=== PATIENT | male | born 1990 | race Caucasian/White ===

== ENCOUNTER 2022-11-06 18:35 | Inpatient (IN) | payer OTHER, SELFPAY ==
--- NOTE | ~2022-11-06 | CT_ITS ---
EXAMINATION: CT ABDOMEN AND PELVIS WITH CONTRAST CLINICAL INFORMATION: Severe abdominal pain. COMPARISON: Abdominal ultrasound earlier today. TECHNIQUE: Multidetector volumetric images were obtained from the superior aspect of the liver through the pubic symphysis following administration 85 mL of Omnipaque 350 intravenous contrast. Sagittal and coronal reformatted images were obtained on the technologist's workstation. Oral contrast: No. This CT examination was performed using dose optimization techniques as appropriate, variously including the following: *Automated exposure control. *Adjustment of mA and/or kV according to patient size (this includes techniques or standardized protocols for targeted exams where dose is matched to indication/reason for exam; i.e. extremities or head). *Use of iterative reconstruction technique. DLP: 321 mGy-cm. FINDINGS: LUNG BASES: No focal consolidation or pleural effusion. LIVER, GALLBLADDER, AND BILIARY TREE: The liver is enlarged measuring 18.5 cm craniocaudally, but is otherwise normal in shape and attenuation. No discrete focal liver mass is noted. There is periportal edema as well as intra and extrahepatic biliary ductal dilatation. The CBD measures up to 0.9 cm in diameter. There is some equivocal hyperdense material in the lumen of the CBD near the periampullary region, best visualized on coronal image 31, series 6. Diffuse gallbladder wall edema. No calcified cholelithiasis. No significant perivesical fat stranding/free fluid. PANCREAS: Unremarkable. SPLEEN: Unremarkable. ADRENAL GLANDS: Unremarkable. KIDNEYS AND URETERS: The kidneys are normal in size, shape, and attenuation. No hydronephrosis, hydroureter, or calculi seen. No perinephric stranding. BLADDER: Unremarkable. 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 There is intussusception of the small bowel into this region of aneurysmal dilatation. Intussusception measures approximately 5.5 cm in length. Multiple slightly prominent fluid filled loops of small bowel in the lower abdomen. Normal appendix. No pericolonic fat stranding/free fluid. ABDOMINAL WALL: No significant hernia is appreciated. LYMPH NODES: No lymphadenopathy. VASCULAR: Normal caliber abdominal aorta. PELVIC VISCERA: Unremarkable. OSSEOUS STRUCTURES: No acute or aggressive-appearing osseous findings. CT/CT abdomen pelvis w IV con IMPRESSION: 1. Approximately 5.5 cm segment of small bowel intussusception in the left upper quadrant adjacent to a surgical anastomosis with upstream aneurysmal dilatation of the bowel. 2. Slightly prominent fluid-filled loops of small bowel in the lower abdomen, nonspecific could be seen with gastroenteritis. 3. Biliary ductal dilatation with an equivocal hyperdense filling defect in the periampullary CBD, recommend further evaluation with MRI/MRCP. 4. Hepatomegaly with periportal edema. 5. Diffuse gallbladder wall edema which is nonspecific in the absence of cholelithiasis or significant pericholecystic fat stranding. Recommend clinical correlation. This critical result was discussed with WYATT Rowe at 11/06/2022 10:20 PM and it was ascertained that the content and urgency of the report was understood at the time of direct communication.
--- NOTE | ~2022-11-06 | US_ITS ---
EXAMINATION: US ABDOMEN LIMITED CLINICAL INFORMATION: Right upper quadrant pain; question cholecystitis. COMPARISON: None available. TECHNIQUE: Real-time imaging of the extrahepatic biliary tree. FINDINGS: GALLBLADDER: There is a sonographic Morales's sign. The gallbladder is physiologically distended, however, without evidence of stones, sludge, polyps, wall thickening or pericholecystic fluid. COMMON BILE DUCT: Normal in caliber measuring 0.4 cm in diameter. FREE FLUID: None demonstrated. US/US abdomen limited IMPRESSION: Some tenderness is seen upon insonation of the right upper quadrant. There is, however, no gallbladder wall thickening or pericholecystic fluid to suggest acute cholecystitis. No cholelithiasis or choledocholithiasis is seen.
--- NOTE | ~2022-11-06 | MR_ITS ---
EXAMINATION: MR ABDOMEN WITHOUT CONTRAST CLINICAL INFORMATION: Dilated CBD. COMPARISON: CT abdomen pelvis 11/06/2022 TECHNIQUE: MR abdomen is performed without gadolinium contrast. Heavily T2 weighted MRCP sequences were obtained. FINDINGS: Technically limited exam, the upper portion of the liver and spleen was excluded from the [id number] on axial sequences. LUNG BASES: Unremarkable. ABDOMINAL AND PELVIC WALL: Unremarkable. LIVER AND BILIARY TREE: Common bile duct measures 6 mm which is within upper limits of normal. No intra or extrahepatic biliary duct dilatation. No intraluminal filling defect suggest choledocholithiasis. GALLBLADDER: Unremarkable. PANCREAS: Unremarkable. SPLEEN: Unremarkable. ADRENAL GLANDS: Unremarkable. KIDNEYS AND URETERS: Unremarkable. GASTROINTESTINAL TRACT: Redemonstration of a small bowel intussusception in the left upper quadrant with upstream mild dilatation of small bowel to 3.3 cm similar to prior, suboptimally evaluated as only partially imaged on the axial sequences and a lead point as the etiology of the intussusception would be difficult to exclude. VASCULAR: Unremarkable. LYMPH NODES/PERITONEUM: No lymphadenopathy. FREE FLUID: None. BLADDER: Unremarkable. PELVIC VISCERA: Unremarkable. OSSEOUS STRUCTURES: Unremarkable. MR/MR MRCP IMPRESSION: 1. Redemonstration of a small bowel intussusception in the left upper quadrant with upstream mild dilatation of small bowel to 3.3 cm similar to prior, suboptimally evaluated as only partially imaged on the axial sequences and a lead point as the etiology of the intussusception would be difficult to exclude. Recommend continued clinical and/or imaging surveillance. 2. Common bile duct measures 6 mm which is within upper limits of normal. No intra or extrahepatic biliary duct dilatation. No intraluminal filling defect suggest choledocholithiasis.
[2022-11-06 18:46] VITALS: BP 135/85; PULSE 61; RESP 20; TEMP 36.7; O2SAT 99; BMI 21.0
--- NOTE | 2022-11-06 18:48 | ED.GENADULT ---
HPI - General Adult General Chief complaint: Abdominal Pain Stated complaint: severe abd pain Time Seen by Provider: 11/06/22 19:08 Source: patient Mode of arrival: ambulatory Limitations: no limitations History of Present Illness HPI narrative: Patient is a 32 year old assigned male at with a history of ETOH abuse and small bowel resection presenting to the emergency department today with right upper quadrant abdominal pain. Patient states that he began having right upper quadrant abdominal pain earlier this afternoon. Patient states that his last drink was yesterday but he usually drinks 9-10 drinks per day. Patient denies any dizziness, lightheadedness, vomiting, fever, chills, blurry vision, double vision, loss of vision, chest pain, difficulty breathing, shortness of breath, back pain, night sweats, pain with urination, increased urinary frequency, increased urinary urgency, blood in his urine or stool, syncope or a near syncopal episode, recent trauma or falls, bowel incontinence, bladder incontinence, bowel retention, bladder retention, or any other complaints at this time. Onset (ago): hour(s) Location: abdomen and right Radiation: non-radiation Severity: moderate Severity scale (1-10): 5 Pain Consistency: constant Relieving factors: none Exacerbating factors: none Associated symptoms: denies other symptoms Treatments prior to arrival: none Related Data Home Medications Medication Instructions Recorded Confirmed No Known Home Meds 11/07/22 11/07/22 Allergies Allergy/AdvReac Type Severity Reaction Status Date / Time bee pollen [bee stings] Allergy Anaphylaxis Verified 11/06/22 18:46 Penicillins Allergy Rash Verified 11/06/22 18:46 Review of Systems Constitutional: Constitutional: Reports no additional constitutional complaints, Denies chills, Denies fever(s) and Denies night sweats Eyes: Eyes: Reports no additional eye complaints, Denies blurry vision, Denies change in vision, Denies diplopia, Denies eye discharge, Denies loss of vision and Denies eye pain ENT: Denies dizziness Cardiovascular: Cardiovascular: Reports no additional cardiovascular complaints, Denies chest pain, Denies lightheadedness, Denies Loss of Consciousness and Denies dyspnea Respiratory: Respiratory: Reports no additional respiratory complaints and Denies dyspnea Gastrointestinal: Gastrointestinal: Reports no additional gastrointestinal complaints, Reports abdominal pain, Denies melena, Denies hematochezia, Denies change in bowel habits, Denies change in stool character and Reports nausea Genitourinary: Genitourinary: Reports no additional male genitourinary complaints, Denies hematuria, Denies oliguria, Denies difficulty urinating, Denies dysuria, Denies urinary frequency, Denies urinary hesitancy, Denies urinary incontinence and Denies urinary urgency Musculoskeletal: Musculoskeletal: Reports no additional musculoskeletal complaints, Denies numbness and Denies tingling Neurologic: Denies dizziness, Denies loss of vision, Denies numbness and Denies tingling Psychiatric: Psychiatric: Reports no additional psychiatric complaints Endocrine: Endocrine: Reports no additional endocrine complaints Hematologic/Lymphatic: Hematologic/Lymphatic: Reports no additional hematologic/lymphatic complaints Allergic/Immunologic: Allergic/Immunologic: Reports no additional allergic/immunologic complaints [facility] Past Medical History Attestation statement: The following information was validated with the patient. Source: old records reviewed and nursing notes reviewed Medical History Abdominal pain ETOH abuse Surgical History History of resection of small bowel Social History Social History Household Members: None Housing: Apartment Do you presently have visiting nurse or other home services: No Alcohol intake: current Alcohol intake frequency: 3 or more drinks per day Alcohol type: beer Patient Tobacco Use Status: Current someday Tobacco user Tobacco use type: Cigarette Smoked in Last 30 Days: Yes e-Cigarette/Vaping Use: Never Used Patient Interested in Nicotine Replacement: No Use of substances other than those prescribed or required for medical reasons: Yes Substance Use Type: Marijuana Substance Use Frequency: Daily Last Used Substance: Just Prior to Admission Currently Displaying Signs/Symptoms of Drug Intoxication Withdrawal: No Any prior treatment program specific to substance use: No Have you been hit, kicked, punched, or otherwise hurt by someone within the past year? If so, by whom?: No Do you feel safe in your current relationship?: No Current Relationship Is there a partner from a previous relationship who is making you feel unsafe now?: No Are you made to feel afraid or neglected: No Advance Directives: No Advance Directives Information Provided: No Do you have thoughts of harming others: None Do you have a plan to hurt others: No Plan Recently lost weight without trying: Yes How much weight loss: 2-13 pounds Eating poorly because of decreased appetite: No Nutrition screen score: 3 Nutrition Risks: No Nutritional Risk Poor oral hygiene: No Physical Exam ED Vital Signs: Vital Signs - 24 hr 11/06/22 18:46 11/06/22 21:26 Temperature 98.0 F 98.3 F Pulse Rate 61 55 Respiratory Rate 20 16 Blood Pressure 135/85 103/61 Pulse Oximetry 99 97 Oxygen Delivery Method Room Air Room Air BMI result Body Mass Index 21.0 Const General: cooperative, no acute distress, alert and awake Nutritional Appearance: well nourished Orientation/consciousness: patient oriented x3 Limitations: no limitations HENMT Head: Yes normal to inspection and Yes atraumatic Ears: hearing grossly normal bilaterally and external ears normal General nose exam: Normal external nose present, no nasal discharge noted and no epistaxis Face and sinus: Yes normal facial exam, No abrasion and No laceration Mouth: Normal oral and palatal mucosa present, no drooling and no muffled voice Eyes General: appearance normal, both eyes and all related structures Periorbital: periorbital findings normal Eyelids: Yes eyelids normal Conjunctivae: conjunctivae normal Pupils: Equal, round and reactive pupils present EOM: EOMs intact bilaterally Neck Neck: Yes normal visual inspection, Yes full ROM and Yes no lymphadenopathy Chest Chest palpation & inspection: normal inspection of the chest Resp Effort & Inspection: normal respiratory effort and able to speak in complete sentences Auscultation: clear to auscultation bilaterally Cardio Rate: regular rate Rhythm: regular rhythm GI Inspection: Yes normal to inspection Palpation (GI): Soft to palpation, not firm, Tenderness to palpation present (GI) in the RUQ and no guarding Neuro General: patient oriented x3 and moves all extremities Cranial nerves: Yes Equal, round and reactive pupils present Cognition (Neuro): normal cognition Motor exam (neuro): 5/5 motor strength present throughout Sensory Exam: Normal double simultaneous stimulation for sensation Coordination: [id number] test normal Extrem General: Yes normal to inspection, Yes full ROM and Yes capillary refill normal Psych Appearance: grossly normal Mental Status: mental status grossly normal Affect: normal affect Attitude: cooperative Thought process: Normal thought process present Thought content: Normal thought content present Insight: Good insight present (Psych) Course Course Course Narrative: RME: 32 yold female presents to the ED for severe RuQ abdominal pain with nausea. positive Morales sign and guarding. CHarge nurse yazmin made aware to bring patinet in for surigal abdomen Medications Administered Generic Name Dose Route Start Last Admin Trade Name Freq PRN Reason Stop Dose Admin Sodium Chloride 1,000 mls @ 100 mls/hr 11/06/22 22:45 11/07/22 09:16 Ns IVCONT 100 mls/hr .Q10H TYESHA Administration Morphine Sulfate 3 mg 11/06/22 22:35 11/07/22 04:30 Morphine Sulfate 2 Mg/Ml Cartridge IVPUSH 3 mg Q4H PRN Administration pain, severe Protocol Omeprazole 20 mg 11/07/22 09:00 11/07/22 09:16 Omeprazole 20 Mg Capsule.Dr PO 20 mg BID TYESHA Administration Sodium Chloride 3 ml 11/07/22 00:00 11/07/22 07:36 0.9 % Sodium Chloride Flush 3 Ml Syringe IVFLUSH Not Given QSHIFT TYESHA Discontinued Medications Generic Name Dose Route Start Last Admin Trade Name Freq PRN Reason Stop Dose Admin Sodium Chloride 1,000 mls @ 999 mls/hr 11/06/22 19:04 11/06/22 23:00 Ns IV 11/06/22 20:04 Infused .Q1H1M STA Infusion Iohexol 100 ml 11/06/22 20:23 11/06/22 20:24 Iohexol 350 Mg/Ml 100 Ml Infus..Btl IV 11/06/22 20:24 85 ml ONCE ONE Administration Morphine Sulfate 4 mg 11/06/22 19:04 11/06/22 19:42 Morphine Sulfate 4 Mg/Ml Cartridge IVPUSH 11/06/22 19:05 4 mg ONCE ONE Administration Protocol Ondansetron HCl 4 mg 11/06/22 19:41 11/06/22 20:07 Ondansetron Hcl 4 Mg/2 Ml Vial IVPUSH 11/06/22 19:42 4 mg ONCE ONE Administration Medical Decision Making Medical Decision Making MDM Narrative: Patient is a 32 year old assigned male at with a history of alcohol abuse and bowel resection presenting to the emergency department today with right upper quadrant abdominal pain. Patient's physical exam was as noted in the physical exam portion of this chart. Patient's blood work showed a WBC count of 20.2 and total bilirubin of 1.6. The rest of the patient's labs were grossly normal. Patient's urine showed no acute process. Patient's RUQ US showed no acute process. Patient's abdomen/pelvis CT showed an approximately 5.5cm segment of small bowel intussusception in the left upper quadrant adjacent to a surgical anastomosis with upstream aneurysmal dilatation of the bowel, slightly prominent fluid-filled loops of small bowel in the lower abdomen which is nonspecific and could be seen with gastroenteritis, biliary ductal dilatation with an equivocal hyperdense filling defect in the periampullary CBD which the radiologist recommends get an MRI or MRCP for further evaluation of. I spoke with the general surgeon who recommended admission and keeping the patient NPO. I explained my physical exam findings as well as all test results to the patient. I answered all questions asked by the patient. Patient received IV fluids and morphine which he stated helped his symptoms significantly. Patient verbalized agreement and understanding with this treatment plan and admission. Differential Diagnosis Differential Diagnoses: The differential diagnosis associated with the presentation includes Cholecystitis Choledocolithiasis Cholelithiasis Intussusception Admission/Observation Consideration of admission/observation: Escalation of care including admission/observation considered Patient admitted. Consult Healthcare Provider Management of the patient was discussed with: Senior Compensation Consultant (spoke with the surgeon as noted in the MDM portion of this note. ) Lab Data [facility] Lab Attestation statement: I reviewed the patient's lab results. My interpretation of these lab results are in the MDM portion of this note. 11/06/22 19:29 11/06/22 19:29 Labs: Lab Results 11/06/22 11/06/22 11/06/22 Range/Units 19:29 19:29 19:29 WBC 20.2 H (4.8-10.8) X10*3/uL RBC 4.57 L (4.60-5.80) X10*6/uL Hgb 15.0 (14.0-18.0) g/dl Hct 42.3 (42.0-52.0) % MCV 92.6 (80.0-98.0) fL MCH 32.8 (27.0-33.0) pg MCHC 35.5 (31.0-36.0) g/dl RDW 13.2 (11.0-16.0) % Plt Count 216 (160-400) X10*3/uL MPV 9.9 (9.4-12.4) fL Immature Gran % (Auto) 0.4 (0.0-0.4) % Neut % (Auto) 69.8 (45-73) % Lymph % (Auto) 12.3 L (20-40) % [place] % (Auto) 12.6 H (2-11) % Eos % (Auto) 4.3 H (0-4) % Baso % (Auto) 0.6 (0-2) % Lymph # (Auto) 2.5 (1.2-4.9) X10*3/uL [place] # (Auto) 2.5 H (0.1-1.2) X10*3/uL Eos # (Auto) 0.9 H (0.0-0.4) X10*3/uL Baso # (Auto) 0.1 (0.0-0.2) X10*3/uL Abs Immat Gran (auto) 0.08 H (0.00-0.03) X10*3/uL Absolute Neuts (auto) 14.1 H (2.0-8.3) x10*3/uL Absolute Nucleated RBC 0.000 (0.0-0.012) X10*3/uL Nucleated RBC % (auto) 0.0 (0.0-0.2) /100WBC Smear Tech's Comments VERIFIED Sodium 140 (135-145) mmol/L Potassium 3.8 (3.3-5.1) mmol/L Chloride 107 (96-108) mmol/L Carbon Dioxide 20 L (22-29) mmol/L Anion Gap 17 (12-20) BUN 12 (9-16) mg/dL Creatinine 0.77 (0.5-1.4) mg/dL Estim Creat Clear Calc 117.0 Estimated GFR > 60 Random Glucose 122 H (60-115) mg/dL Lactic Acid 1.2 (0.5-2.0) mmol/L Calcium 10.1 (8.4-10.2) mg/dL Total Bilirubin 1.6 H (0.0-1.0) mg/dL AST 21 (5-37) U/L ALT 16 (0-40) U/L Alkaline Phosphatase 77 (39-117) U/L Total Protein 7.1 (6.5-8.0) g/dL Albumin 4.8 (3.5-5.0) g/dL Lipase 42 (8-78) U/L Urine Color Urine Appearance Urine pH (5.0-9.0) Ur Specific [place] (1.005-1.025) Urine Protein (Neg-Trace) mg/dL Urine Glucose (UA) (Negative) mg/dL Urine Ketones (Negative) mg/dL Urine Blood (Negative) Urine Nitrite (Negative) Ur Leukocyte Esterase (Negative) Hepatitis A IgM Ab (Nonreactive) Hep Bs Antigen (Negative) Hep Bs Antibody (Nonreactive) Hep B Core Total Ab (Nonreactive) Hepatitis C Ab (EIA) (Nonreactive) 11/06/22 11/06/22 Range/Units 19:39 21:31 WBC (4.8-10.8) X10*3/uL RBC (4.60-5.80) X10*6/uL Hgb (14.0-18.0) g/dl Hct (42.0-52.0) % MCV (80.0-98.0) fL MCH (27.0-33.0) pg MCHC (31.0-36.0) g/dl RDW (11.0-16.0) % Plt Count (160-400) X10*3/uL MPV (9.4-12.4) fL Immature Gran % (Auto) (0.0-0.4) % Neut % (Auto) (45-73) % Lymph % (Auto) (20-40) % [place] % (Auto) (2-11) % Eos % (Auto) (0-4) % Baso % (Auto) (0-2) % Lymph # (Auto) (1.2-4.9) X10*3/uL [place] # (Auto) (0.1-1.2) X10*3/uL Eos # (Auto) (0.0-0.4) X10*3/uL Baso # (Auto) (0.0-0.2) X10*3/uL Abs Immat Gran (auto) (0.00-0.03) X10*3/uL Absolute Neuts (auto) (2.0-8.3) x10*3/uL Absolute Nucleated RBC (0.0-0.012) X10*3/uL Nucleated RBC % (auto) (0.0-0.2) /100WBC Smear Tech's Comments Sodium (135-145) mmol/L Potassium (3.3-5.1) mmol/L Chloride (96-108) mmol/L Carbon Dioxide (22-29) mmol/L Anion Gap (12-20) BUN (9-16) mg/dL Creatinine (0.5-1.4) mg/dL Estim Creat Clear Calc Estimated GFR Random Glucose (60-115) mg/dL Lactic Acid (0.5-2.0) mmol/L Calcium (8.4-10.2) mg/dL Total Bilirubin (0.0-1.0) mg/dL AST (5-37) U/L ALT (0-40) U/L Alkaline Phosphatase (39-117) U/L Total Protein (6.5-8.0) g/dL Albumin (3.5-5.0) g/dL Lipase (8-78) U/L Urine Color Yellow Urine Appearance Clear Urine pH 6.0 (5.0-9.0) Ur Specific [place] >= 1.030 H (1.005-1.025) Urine Protein Negative (Neg-Trace) mg/dL Urine Glucose (UA) Negative (Negative) mg/dL Urine Ketones Trace (Negative) mg/dL Urine Blood Negative (Negative) Urine Nitrite Negative (Negative) Ur Leukocyte Esterase Negative (Negative) Hepatitis A IgM Ab Nonreactive (Nonreactive) Hep Bs Antigen Negative (Negative) Hep Bs Antibody NONREACTIVE (Nonreactive) Hep B Core Total Ab Nonreactive (Nonreactive) Hepatitis C Ab (EIA) Nonreactive (Nonreactive) Independent Interpretation I performed an independent interpretation of an: Ultrasound and CT Scan Interpretation: My interpretation is in agreement with the radiologist's impression of these imaging studies. EXAMINATION: CT ABDOMEN AND PELVIS WITH CONTRAST? CLINICAL INFORMATION: Severe abdominal pain.? COMPARISON: Abdominal ultrasound earlier today. TECHNIQUE: Multidetector volumetric images were obtained from the superior aspect of the liver through the pubic symphysis following administration 85 mL of Omnipaque 350 intravenous contrast. Sagittal and coronal reformatted images were obtained on the technologist's workstation.? Oral contrast: No. This CT examination was performed using dose optimization techniques as appropriate, variously including the following: *Automated exposure control. *Adjustment of mA and/or kV according to patient size (this includes techniques or standardized protocols for targeted exams where dose is matched to indication/reason for exam; i.e. extremities or head). *Use of iterative reconstruction technique. DLP: 321 mGy-cm. FINDINGS: LUNG BASES: No focal consolidation or pleural effusion.? LIVER, GALLBLADDER, AND BILIARY TREE: The liver is enlarged measuring 18.5 cm craniocaudally, but is otherwise normal in shape and attenuation. No discrete focal liver mass is noted. There is periportal edema as well as intra and extrahepatic biliary ductal dilatation. The CBD measures up to 0.9 cm in diameter. There is some equivocal hyperdense material in the lumen of the CBD near the periampullary region, best visualized on coronal image 31, series 6. Diffuse gallbladder wall edema. No calcified cholelithiasis. No significant perivesical fat stranding/free fluid. PANCREAS: Unremarkable.? SPLEEN: Unremarkable.? ADRENAL GLANDS: Unremarkable.? KIDNEYS AND URETERS: The kidneys are normal in size, shape, and attenuation. No hydronephrosis, hydroureter, or calculi seen. No perinephric stranding. ? BLADDER: Unremarkable.? 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 There is intussusception of the small bowel into this region of aneurysmal dilatation. Intussusception measures approximately 5.5 cm in length. Multiple slightly prominent fluid filled loops of small bowel in the lower abdomen. Normal appendix. No pericolonic fat stranding/free fluid. ABDOMINAL WALL: No significant hernia is appreciated.? LYMPH NODES: No lymphadenopathy. VASCULAR: Normal caliber abdominal aorta. PELVIC VISCERA: Unremarkable.? OSSEOUS STRUCTURES: No acute or aggressive-appearing osseous findings. CT/CT abdomen pelvis w IV con IMPRESSION: ? 1. Approximately 5.5 cm segment of small bowel intussusception in the left upper quadrant adjacent to a surgical anastomosis with upstream aneurysmal dilatation of the bowel. 2. Slightly prominent fluid-filled loops of small bowel in the lower abdomen, nonspecific could be seen with gastroenteritis. 3. Biliary ductal dilatation with an equivocal hyperdense filling defect in the periampullary CBD, recommend further evaluation with MRI/MRCP. 4. Hepatomegaly with periportal edema. 5. Diffuse gallbladder wall edema which is nonspecific in the absence of cholelithiasis or significant pericholecystic fat stranding. Recommend clinical correlation. ? This critical result was discussed with WYATT Rowe at 11/06/2022 10:20 PM and it was ascertained that the content and urgency of the report was understood at the time of direct communication. Dictated By: Felisha West Signed By: Electronically signed by Felisha?Brett 11/06/22 2221 EXAMINATION: US ABDOMEN LIMITED CLINICAL INFORMATION: Right upper quadrant pain; question cholecystitis. COMPARISON: None available. TECHNIQUE: Real-time imaging of the extrahepatic biliary tree. FINDINGS: GALLBLADDER: There is a sonographic Morales's sign. The gallbladder is physiologically distended, however, without evidence of stones, sludge, polyps, wall thickening or pericholecystic fluid. COMMON BILE DUCT: Normal in caliber measuring 0.4 cm in diameter. FREE FLUID: None demonstrated. US/US abdomen limited IMPRESSION: Some tenderness is seen upon insonation of the right upper quadrant. There is, however, no gallbladder wall thickening or pericholecystic fluid to suggest acute cholecystitis. No cholelithiasis or choledocholithiasis is seen. Dictated By: Chilo Aleman MD Signed By: Electronically signed by Chilo Aleman MD 11/06/222001 Radiology Impression Discussion of test interpretation with radiology: I have reviewed the radiologist's reading. Critical Care Time Critical Care Time Critical Care Time: Yes Total Critical Care Time: 45 Attestation: I spent 45 minutes of Critical Care Time with this patient. This does not include time spent on separately reported billable procedures. Discharge Plan Discharge Clinical Impression: Abdominal pain, Intussusception Patient Disposition: Admitted As Inpatient Interventions: Admission Worksheet (ED) Last Done: 11/07/22 03:40 Discharge Date/Time: 11/07/22 03:47
[2022-11-06 19:37] LABS: Basophils Absolute Auto 0.1 X10*3/uL (0.0-0.2); Basophils Percent Auto 0.6 % (0-2); Eosinophils Absolute Auto 0.9 X10*3/uL (0.0-0.4); Eosinophils Percent Auto 4.3 % (0-4); Hematocrit 42.3 % (42.0-52.0); Imm Gran Abs Auto 0.08 X10*3/uL (0.00-0.03); Imm Gran Pct Auto 0.4 % (0.0-0.4); Lymphocytes Absolute Auto 2.5 X10*3/uL (1.2-4.9); Lymphocytes Percent Auto 12.3 % (20-40); MANUAL DIFF FLAG SCAN; Mean Corpuscular HGB Conc 35.5 g/dl (31.0-36.0); Mean Corpuscular Hemoglobin 32.8 pg (27.0-33.0); Mean Corpuscular Volume 92.6 fL (80.0-98.0); Mean Platelet Volume 9.9 fL (9.4-12.4); Monocytes Absolute Auto 2.5 X10*3/uL (0.1-1.2); Monocytes Percent Auto 12.6 % (2-11); Neutrophils Absolute Auto 14.1 x10*3/uL (2.0-8.3); Neutrophils Percent Auto 69.8 % (45-73); Platelet Count 216 X10*3/uL (160-400); Red Blood Count 4.57 X10*6/uL (4.60-5.80); Red Cell Distribution Width 13.2 % (11.0-16.0); SCAN SMEAR FLAG 1; White Blood Count 20.2 X10*3/uL (4.8-10.8)
[2022-11-06] MEDS: Morphine Sulfate 4 MG/ML CARTRIDGE IVPUSH (19:42)
[2022-11-06] MEDS: 0.9 % Sodium Chloride 1,000 ML 999 ML IV (19:43)
[2022-11-06 20:03] LABS: Lactic Acid 1.2 mmol/L (0.5-2.0)
[2022-11-06] MEDS: ondansetron HCL 4 MG/2 ML VIAL IVPUSH (20:07)
[2022-11-06 20:08] LABS: Alanine Aminotransferase 16 U/L (0-40); Albumin Level 4.8 g/dL (3.5-5.0); Alkaline Phosphatase 77 U/L (39-117); Anion Gap 17 (12-20); Aspartate Amino Transferase 21 U/L (5-37); Bilirubin Total 1.6 mg/dL (0.0-1.0); Blood Urea Nitrogen 12 mg/dL (9-16); Calcium 10.1 mg/dL (8.4-10.2); Carbon Dioxide 20 mmol/L (22-29); Chloride 107 mmol/L (96-108); Estimated Glomerular Filt Rate > 60; Glucose Random 122 mg/dL (60-115); Lipase 42 U/L (8-78); Potassium 3.8 mmol/L (3.3-5.1); Sodium 140 mmol/L (135-145); Total Protein 7.1 g/dL (6.5-8.0)
[2022-11-06 20:09] LABS: SLIDE REVIEW VERIFIED
[2022-11-06] MEDS: iohexoL 350 MG/ML 100 ML INFUS..BTL IV (20:24)
[2022-11-06 21:26] VITALS: BP 103/61; PULSE 55; RESP 16; TEMP 36.8; O2SAT 97
[2022-11-06 22:05] LABS: Appearance Urine Clear; Color Urine Yellow; Glucose Urine UA Negative (Negative); Leukocyte Esterase Urine Negative (Negative); Nitrite Urine Negative (Negative); Specific Gravity - Urine >= 1.030 (1.005-1.025); Urine Blood Negative (Negative); Urine Ketones Trace mg/dL (Negative); Urine Protein Negative (Neg-Trace)
--- NOTE | 2022-11-06 22:26 | P.HPGS_ITS ---
History of Present Illness History of Present Illness Date of Service: 11/08/22 Chief complaint: Abd pain, dilated CBD Narrative: Yinka Bradley is a 32 year old male who came to the ED earlier for abdominal pain. He described this as mostly on the right side of the abdomen. He says this started around 130 in the afternoon. He described one episode of vomitting although he says that he this to try to be more comfortable and he says he has not been nauseous and has not vomited since he has been in the ER. The pain was described as severe so he went to the ED. By the time I saw him, he says his pain was almost completely resolved. He admits to heavy alcohol intake everyday. 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 Review of Systems Constitutional: Constitutional: Denies chills and Denies fever(s) Cardiovascular: Cardiovascular: Denies chest pain, Denies dyspnea and Denies dyspnea on exertion Respiratory: Respiratory: Denies cough, Denies dyspnea and Denies dyspnea on exertion Gastrointestinal: Gastrointestinal: Denies hematochezia and Denies change in bowel habits Genitourinary: Genitourinary: Denies hematuria and Denies difficulty urinating Musculoskeletal: Musculoskeletal: Denies back pain and Denies limited range of motion Neurologic: Denies focal weakness and Denies convulsions Psychiatric: Psychiatric: Denies depression and Denies mood swings PMF Past Medical History Medical History Abdominal pain ETOH abuse Surgical History Surgical History History of resection of small bowel Social History Social History Household Members: None Housing: Apartment Do you presently have visiting nurse or other home services: No Alcohol intake: current Alcohol intake frequency: 3 or more drinks per day Alcohol type: beer Patient Tobacco Use Status: Current someday Tobacco user Tobacco use type: Cigarette e-Cigarette/Vaping Use: Never Used Substance Use Type: Marijuana service: No Meds Allergies Allergy/AdvReac Type Severity Reaction Status Date / Time bee pollen [bee stings] Allergy Anaphylaxis Verified 11/06/22 18:46 Penicillins Allergy Rash Verified 11/06/22 18:46 Home Medications Medication Instructions Recorded Confirmed Last Taken Type No Known Home Meds 11/07/22 11/07/22 Unknown History Physical Exam Vital Signs: Vital Signs: Last Vital Signs Temp 98.3 F 11/06/22 21:26 Pulse 55 11/06/22 21:26 Resp 16 11/06/22 21:26 BP 103/61 11/06/22 21:26 Pulse Ox 97 11/06/22 21:26 O2 Del Method Room Air 11/06/22 21:26 BMI result Body Mass Index 21.0 Const: General: comfortable and no acute distress Orientation/consciousness: patient oriented x3 Neck: Neck: Yes no lymphadenopathy Resp: Auscultation: clear to auscultation bilaterally Cardio: Rhythm: regular rhythm GI: Other: minimal tenderness right side of abdomen Palpation (GI): Soft to palpation, nontender and no guarding Neuro: General: patient oriented x3 Results Results Labs: Short CBC 11/06/22 Range/Units 19:29 WBC 20.2 H (4.8-10.8) X10*3/uL Hgb 15.0 (14.0-18.0) g/dl Hct 42.3 (42.0-52.0) % Plt Count 216 (160-400) X10*3/uL BMP 11/06/22 19:29 Sodium 140 Potassium 3.8 Chloride 107 Carbon Dioxide 20 L BUN 12 Creatinine 0.77 Calcium 10.1 Liver Function 11/06/22 Range/Units 19:29 Total Bilirubin 1.6 H (0.0-1.0) mg/dL AST 21 (5-37) U/L ALT 16 (0-40) U/L Alkaline Phosphatase 77 (39-117) U/L Albumin 4.8 (3.5-5.0) g/dL Urine 11/06/22 Range/Units 21:31 Urine Color Yellow Urine Appearance Clear Urine pH 6.0 (5.0-9.0) Ur Specific [place] >= 1.030 H (1.005-1.025) Urine Protein Negative (Neg-Trace) mg/dL Urine Glucose (UA) Negative (Negative) mg/dL Laboratory Results WBC 20.2 X10*3/uL (4.8-10.8) H 11/06/22 19:29 RBC 4.57 X10*6/uL (4.60-5.80) L 11/06/22 19:29 Hgb 15.0 g/dl (14.0-18.0) 11/06/22: Hct 42.3 % (42.0-52.0) 11/06/22: MCV 92.6 fL (80.0-98.0) 11/06/22 19: MCH 32.8 pg (27.0-33.0) 11/06/22: MCHC 35.5 g/dl (31.0-36.0) 11/06/22: RDW 13.2 % (11.0-16.0) 11/06/22: Plt Count 216 X10*3/uL (160-400) 11/06/22 MPV 9.9 fL (9.4-12.4) 11/06/22 Immature Gran % (Auto) 0.4 % (0.0-0.4) 11/06/22 Neut % (Auto) 69.8 % (45-73) 11/06/22: Lymph % (Auto) 12.3 % (20-40) L 11/06/22: [place] % (Auto) 12.6 % (2-11) H 11/06/22: Eos % (Auto) 4.3 % (0-4) H 11/06/22 Baso % (Auto) 0.6 % (0-2) 11/06/22: Lymph # (Auto) 2.5 X10*3/uL (1.2-4.9) 11/06/22: [place] # (Auto) 2.5 X10*3/uL (0.1-1.2) H 11/06/22: Eos # (Auto) 0.9 X10*3/uL (0.0-0.4) H 11/06/22 Baso # (Auto) 0.1 X10*3/uL (0.0-0.2) 11/06/22 Abs Immat Gran (auto) 0.08 X10*3/uL (0.00-0.03) H 11/06/22 Absolute Neuts (auto) 14.1 x10*3/uL (2.0-8.3) H 11/06/22 19:29 Absolute Nucleated RBC 0.000 X10*3/uL (0.0-0.012) 11/06/22 19:29 Nucleated RBC % (auto) 0.0 /100WBC (0.0-0.2) 11/06/22 19:29 Smear Tech's Comments VERIFIED 11/06/22 19:29 Sodium 140 mmol/L (135-145) 11/06/22 19:29 Potassium 3.8 mmol/L (3.3-5.1) 11/06/22 19:29 Chloride 107 mmol/L (96-108) 11/06/22 19:29 Carbon Dioxide 20 mmol/L (22-29) L 11/06/22 19:29 Anion Gap 17 (12-20) 11/06/22 19:29 BUN 12 mg/dL (9-16) 11/06/22 19:29 Creatinine 0.77 mg/dL (0.5-1.4) 11/06/22 19:29 Estim Creat Clear Calc 117.0 11/06/22 19:29 Estimated GFR > 60 11/06/22 19:29 Random Glucose 122 mg/dL (60-115) H 11/06/22 19:29 Lactic Acid 1.2 mmol/L (0.5-2.0) 11/06/22 19:29 Calcium 10.1 mg/dL (8.4-10.2) 11/06/22 19:29 Total Bilirubin 1.6 mg/dL (0.0-1.0) H 11/06/22 19:29 AST 21 U/L (5-37) 11/06/22 19:29 ALT 16 U/L (0-40) 11/06/22 19:29 Alkaline Phosphatase 77 U/L (39-117) 11/06/22 19:29 Total Protein 7.1 g/dL (6.5-8.0) 11/06/22 19:29 Albumin 4.8 g/dL (3.5-5.0) 11/06/22 19:29 Lipase 42 U/L (8-78) 11/06/22 19:29 Urine Color Yellow 11/06/22 21:31 Urine Appearance Clear 11/06/22 21:31 Urine pH 6.0 (5.0-9.0) 11/06/22 21: Ur Specific [place] >= 1.030 (1.005-1.025) H 11/06/22 21: Urine Protein Negative mg/dL (Neg-Trace) 11/06/22 21: Urine Glucose (UA) Negative mg/dL (Negative) 11/06/22 21: Urine Ketones Trace mg/dL (Negative) 11/06/22 21: Urine Blood Negative (Negative) 11/06/22 21: Urine Nitrite Negative (Negative) 11/06/22 21: Ur Leukocyte Esterase Negative (Negative) 11/06/22 21: Impressions Abdomen Ultrasound 11/06/22 19:18 IMPRESSION: Some tenderness is seen upon insonation of the right upper quadrant. There is, however, no gallbladder wall thickening or pericholecystic fluid to suggest acute cholecystitis. No cholelithiasis or choledocholithiasis is seen. Abdomen/Pelvis CT 11/06/22 20:28 IMPRESSION: 1. Approximately 5.5 cm segment of small bowel intussusception in the left upper quadrant adjacent to a surgical anastomosis with upstream aneurysmal dilatation of the bowel. 2. Slightly prominent fluid-filled loops of small bowel in the lower abdomen, nonspecific could be seen with gastroenteritis. 3. Biliary ductal dilatation with an equivocal hyperdense filling defect in the periampullary CBD, recommend further evaluation with MRI/MRCP. 4. Hepatomegaly with periportal edema. 5. Diffuse gallbladder wall edema which is nonspecific in the absence of cholelithiasis or significant pericholecystic fat stranding. Recommend clinical correlation. This critical result was discussed with WYATT Rowe at 11/06/2022 10:20 PM and it was ascertained that the content and urgency of the report was understood at the time of direct communication. Assessment and Plan (1) Abdominal pain: Status: Acute He came in for abdominal pain on the right side, of a few hours duration. His CT scan report shows possible intussuception, and suggestion of filling defect in the distal CBD along with dilated CBD. His bilirubin is mildly elevated. His exam is currently benign and he says his pain has practically resolved at this time, He does not seem to be clinically obstructed. He is not nauseous currenty. In view of his dilated CBD, with question of filling defect, I will arrange for him to undergo MRCP. Time Spent With Patient Time: Total time managing care of this patient today ____ minutes. Quality Stroke Does the patient have a stroke diagnosis?: No VTE Prior VTE?: No VTE Risk Level:: Medical - low VTE Device Contraindication: Treatment Not Indicated VTE Drug Contraindication: Treatment Not Indicated Procedures Date of Service Date of Service: 11/08/22
--- NOTE | 2022-11-06 23:00 | PC.NURSE ---
This junior technical writer assumed care at 2300, A&Ox4, pt reports 4/10 dull upper abd pain, Pt reports last BM was yesterday morning and normal for self. Hypoactive bowel soundsx4, pt reports tender to touch. Fluids running per MAR, Pt resting quietly. VSS. WCTM.
[2022-11-06] MEDS: 0.9 % Sodium Chloride 1,000 ML 100 ML IVCONT (23:45)
[2022-11-06 23:53] VITALS: BP 117/69; PULSE 60; RESP 16; TEMP 36.7; O2SAT 98
--- NOTE | 2022-11-07 03:38 | PC.NURSE ---
RN to RN report given to Kim pt will be transported to room 386. Pt aware of plan.
[2022-11-07 04:00] VITALS: BP 130/62; PULSE 62; RESP 18; TEMP 36.4; O2SAT 98
[2022-11-07 04:13] VITALS: BMI 22.4
[2022-11-07] MEDS: Morphine Sulfate 2 MG/ML CARTRIDGE 3 MG IVPUSH (04:30)
[2022-11-07 04:47] LABS: HBS Num1 4.37 mIU/mL (0-7.99); HBc Num1 0.08 S/CO (0.00-0.79); HBsAGNum1 0.34 S/CO (0.00-0.99); Hepatitis A Antibody IgM 0.19 Index (0-0.79); Hepatitis B Core Antibody Nonreactive (Nonreactive); Hepatitis B Surface Antigen Negative (Negative); ~Hepatitis A Antibody IgM Nonreactive (Nonreactive); ~Hepatitis B Surface Antibody NONREACTIVE (Nonreactive); ~Hepatitis C Antibody Nonreactive (Nonreactive)
--- NOTE | 2022-11-07 08:14 | P.PNGS_ITS ---
Subjective Subjective Date of Service: 11/07/22 Interval history: Feels well this morning Says abdominal pain practically resolved now No nausea or vomiting Physical Exam Vital Signs: Vital Signs: Last Vital Signs Temp 97.5 F 11/07/22 04:00 Pulse 62 11/07/22 04:00 Resp 18 11/07/22 04:00 BP 130/62 11/07/22 04:00 Pulse Ox 98 11/07/22 04:00 O2 Del Method Room Air 11/07/22 04:00 BMI result Body Mass Index 22.4 Const: Other: Looks well General: comfortable and no acute distress Resp: Effort & Inspection: normal respiratory effort Cardio: Rate: regular rate GI: Palpation (GI): Soft to palpation, not firm, nontender and no guarding Objective Data Active Medications Sodium Chloride (Ns) 1,000 mls @ 100 mls/hr IVCONT .Q10H [facility] Last Admin: 11/06/22 23:45 Dose: 100 mls/hr Documented By: FRANCI Morphine Sulfate (Morphine Sulfate 2 Mg/Ml Cartridge) 3 mg IVPUSH Q4H PRN; Protocol PRN Reason: pain, severe Last Admin: 11/07/22 04:30 Dose: 3 mg Documented By: LAURA Omeprazole (Omeprazole 20 Mg Capsule.Dr) 20 mg PO BID [facility] Ondansetron HCl (Ondansetron Hcl 4 Mg/2 Ml Vial) 4 mg IVPUSH Q8H PRN PRN Reason: Nausea Sodium Chloride (0.9 % Sodium Chloride Flush 3 Ml Syringe) 3 ml IVFLUSH QSHIFT [facility] Last Admin: 11/07/22 07:36 Dose: Not Given Documented By: ODALYS Non-Admin Reason: IV Running Labs 11/06/22 19:29 11/06/22 19:29 Labs: Laboratory Results - last 24 hr 11/06/22 11/06/22 11/06/22 19:29 19:29 19:29 MCV 92.6 MCH 32.8 MCHC 35.5 RDW 13.2 Plt Count 216 MPV 9.9 Immature Gran % (Auto) 0.4 Neut % (Auto) 69.8 Lymph % (Auto) 12.3 L [place] % (Auto) 12.6 H Eos % (Auto) 4.3 H Baso % (Auto) 0.6 Lymph # (Auto) 2.5 [place] # (Auto) 2.5 H Eos # (Auto) 0.9 H Baso # (Auto) 0.1 Abs Immat Gran (auto) 0.08 H Absolute Neuts (auto) 14.1 H Absolute Nucleated RBC 0.000 Nucleated RBC % (auto) 0.0 Smear Tech's Comments VERIFIED Anion Gap 17 Estim Creat Clear Calc 117.0 Estimated GFR > 60 Random Glucose 122 H Lactic Acid 1.2 Calcium 10.1 Total Bilirubin 1.6 H AST 21 ALT 16 Alkaline Phosphatase 77 Total Protein 7.1 Albumin 4.8 Lipase 42 Urine Color Urine Appearance Urine pH Ur Specific [place] Urine Protein Urine Glucose (UA) Urine Ketones Urine Blood Urine Nitrite Ur Leukocyte Esterase Hepatitis A IgM Ab Hep Bs Antigen Hep Bs Antibody Hep B Core Total Ab Hepatitis C Ab (EIA) 11/06/22 11/06/22 19:39 21:31 MCV MCH MCHC RDW Plt Count MPV Immature Gran % (Auto) Neut % (Auto) Lymph % (Auto) [place] % (Auto) Eos % (Auto) Baso % (Auto) Lymph # (Auto) [place] # (Auto) Eos # (Auto) Baso # (Auto) Abs Immat Gran (auto) Absolute Neuts (auto) Absolute Nucleated RBC Nucleated RBC % (auto) Smear Tech's Comments Anion Gap Estim Creat Clear Calc Estimated GFR Random Glucose Lactic Acid Calcium Total Bilirubin AST ALT Alkaline Phosphatase Total Protein Albumin Lipase Urine Color Yellow Urine Appearance Clear Urine pH 6.0 Ur Specific [place] >= 1.030 H Urine Protein Negative Urine Glucose (UA) Negative Urine Ketones Trace Urine Blood Negative Urine Nitrite Negative Ur Leukocyte Esterase Negative Hepatitis A IgM Ab Nonreactive Hep Bs Antigen Negative Hep Bs Antibody NONREACTIVE Hep B Core Total Ab Nonreactive Hepatitis C Ab (EIA) Nonreactive Procedures Date of Service Date of Service: 11/07/22 Progress Note: A&P Assessment and plan (1) Abdominal pain: Status: Acute Assessment and Plan: Symptoms resolved CT scan suggesting CBD obstruction MRCP ordered - pending results Repeat labs this morning Abdomen soft, benign and nontender He looks well otherwise Clinically not obstructed Time Spent With Patient Time: Total time managing care of this patient today ____ minutes. Quality Stroke Does the patient have a stroke diagnosis?: No VTE Prior VTE?: No VTE Risk Level:: Medical - low VTE Device Contraindication: Treatment Not Indicated VTE Drug Contraindication: Treatment Not Indicated
[2022-11-07 08:26] VITALS: BP 112/68; PULSE 51; RESP 18; TEMP 36.3; O2SAT 98
[2022-11-07 08:53] LABS: Hematocrit 39.9 % (42.0-52.0); Hemoglobin 13.9 g/dl (14.0-18.0); Mean Corpuscular HGB Conc 34.8 g/dl (31.0-36.0); Mean Corpuscular Hemoglobin 32.8 pg (27.0-33.0); Mean Corpuscular Volume 94.1 fL (80.0-98.0); Mean Platelet Volume 10.5 fL (9.4-12.4); Platelet Count 200 X10*3/uL (160-400); Red Blood Count 4.24 X10*6/uL (4.60-5.80); Red Cell Distribution Width 13.6 % (11.0-16.0); White Blood Count 11.6 X10*3/uL (4.8-10.8)
[2022-11-07] MEDS: 0.9 % Sodium Chloride 1,000 ML 100 ML IVCONT ×2 (09:16→19:26)
[2022-11-07] MEDS: Omeprazole 20 MG CAPSULE.DR PO ×2 (09:16→20:13)
--- NOTE | 2022-11-07 09:38 | PHA.MEDREC ---
Pharmacy Consult ? Medication Reconciliation Pharmacy has completed the medication reconciliation. Rossii spoke with patient and confirmed no home meds.
[2022-11-07 09:57] LABS: Alanine Aminotransferase 16 U/L (0-40); Alkaline Phosphatase 66 U/L (39-117); Anion Gap 10 (12-20); Aspartate Amino Transferase 18 U/L (5-37); Bilirubin Direct 0.5 mg/dL (0.0-0.5); Bilirubin Total 1.7 mg/dL (0.0-1.0); Blood Urea Nitrogen 8 mg/dL (9-16); Calcium 8.9 mg/dL (8.4-10.2); Carbon Dioxide 25 mmol/L (22-29); Chloride 109 mmol/L (96-108); Creatinine Clr Calc Pharmacy 121.6; Estimated Glomerular Filt Rate > 60; Glucose Random 99 mg/dL (60-115); Potassium 3.9 mmol/L (3.3-5.1); Sodium 140 mmol/L (135-145)
--- NOTE | 2022-11-07 12:25 | PM.EVENT ---
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 Pt appears slightly aggitated because he wants to leave but is resting comfortably in bed otherwise. Reports drinking 3-10 beers on a daily basis, last etoh was 48 hours ago. He denies any withdrawal symptoms. He declines referral for addiction medicine but does state he wishes to cut back on etoh consumption. Feels he can do this on this own. Cessation counseling provided and again declines addiction med consult. Advised to reach out if he changes his mind. Time Spent With Patient Time: Total time managing care of this patient today ____ minutes.
--- NOTE | 2022-11-07 13:58 | PM.EVENT ---
Event Note Date of Service: 11/07/22 Event Note: MRI reviewed - no CBD obstruction However, note of a picture of intussusception of small-bowel loop in the left upper quadrant Had explained this to the patient Says he never had pain in the left side of his abdomen. He describes his pain as on the right upper quadrant yesterday He says he is completely pain-free today He denies any nausea or vomiting He had wanted to signout against medical advise I was able to convince him to stay and see if he can tolerate diet Otherwise, he may benefit from laparotomy and resection of the small bowel loop involved Eventually, he stated that he will stay overnight Abdomen remained soft and benign and nontender nondistended Time Spent With Patient Time: Total time managing care of this patient today ____ minutes.
--- NOTE | 2022-11-07 15:02 | MHC.CM.PN ---
Male DX Ab pain Patient lives by himself. He is independent with all functional mobility. He does not have a PCP. The [facility] MD brochure was provided. Patient declined HCP. DP home self care. Patient will arrange for a ride home.
[2022-11-07 15:46] VITALS: BP 117/73; PULSE 56; RESP 20; TEMP 36.6; O2SAT 98
[2022-11-07 20:00] VITALS: BP 117/66; PULSE 58; RESP 20; TEMP 36; O2SAT 97
[2022-11-07] MEDS: Melatonin 3 MG TABLET 6 MG PO (22:50)
[2022-11-08 03:21] VITALS: BP 104/55; PULSE 54; RESP 18; TEMP 36.3; O2SAT 99
[2022-11-08] MEDS: 0.9 % Sodium Chloride 1,000 ML 100 ML IVCONT (04:39)
[2022-11-08 07:17] VITALS: BP 109/68; PULSE 53; RESP 18; TEMP 36.5; O2SAT 97
[2022-11-08] MEDS: Omeprazole 20 MG CAPSULE.DR PO (07:57)
--- NOTE | 2022-11-08 08:27 | P.PNGS_ITS ---
Subjective Subjective Date of Service: 11/08/22 Interval history: Says he feels well Denies significant abdominal pain States wants to go home as symptoms have completely resolved Tolerated diet well Good flatus Physical Exam Vital Signs: Vital Signs: Last Vital Signs Temp 97.7 F 11/08/22 07:17 Pulse 53 11/08/22 07:17 Resp 18 11/08/22 07:17 BP 109/68 11/08/22 07:17 Pulse Ox 97 11/08/22 07:17 O2 Del Method Room Air 11/08/22 07:17 BMI result Body Mass Index 22.4 Const: Other: Ambulating and looks well General: comfortable and no acute distress Resp: Effort & Inspection: normal respiratory effort Cardio: Rate: regular rate GI: Palpation (GI): Soft to palpation, not firm, nontender and no guarding Objective Data Active Medications Sodium Chloride (Ns) 1,000 mls @ 100 mls/hr IVCONT .Q10H [facility] Last Admin: 11/08/22 04:39 Dose: 100 mls/hr Documented By: LDIIA Melatonin (Melatonin 3 Mg Tablet) 6 mg PO BEDTIME PRN PRN Reason: Insomnia Last Admin: 11/07/22 22:50 Dose: 6 mg Documented By: LIDIA Morphine Sulfate (Morphine Sulfate 2 Mg/Ml Cartridge) 3 mg IVPUSH Q4H PRN; Protocol PRN Reason: pain, severe Last Admin: 11/07/22 04:30 Dose: 3 mg Documented By: LAURA Omeprazole (Omeprazole 20 Mg Capsule.) 20 mg PO BID [facility] Last Admin: 11/08/22 07:57 Dose: 20 mg Documented By: ODALYS Ondansetron HCl (Ondansetron Hcl 4 Mg/2 Ml Vial) 4 mg IVPUSH Q8H PRN PRN Reason: Nausea Sodium Chloride (0.9 % Sodium Chloride Flush 3 Ml Syringe) 3 ml IVFLUSH QSHIFT [facility] Last Admin: 11/08/22 07:06 Dose: Not Given Documented By: ODALYS Non-Admin Reason: IV Running Labs 11/07/22 07:58 11/07/22 07:58 Labs: Laboratory Results - last 24 hr 11/07/22 11/07/22 07:58 07:58 MCV 94.1 MCH 32.8 MCHC 34.8 RDW 13.6 Plt Count 200 MPV 10.5 Absolute Nucleated RBC 0.000 Nucleated RBC % (auto) 0.0 Anion Gap 10 L Estim Creat Clear Calc 121.6 Estimated GFR > 60 Random Glucose 99 Calcium 8.9 D Total Bilirubin 1.7 H Direct Bilirubin 0.5 AST 18 ALT 16 Alkaline Phosphatase 66 Total Protein 6.0 L Albumin 4.0 Microbiology Microbiology Results: Microbiology 11/06/22 19:29 Blood Culture - Preliminary Blood - Venous No growth after 24 hours. 11/06/22 19:29 Blood Culture - Preliminary Blood - Venous No growth after 24 hours. 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 No obvious mass MRI does not show CBD stones He says his pain mass on the right upper quadrant when he came to the ER He says he never had pain on the left side of his abdomen He wants to be discharged Although clinically, he is asymptomatic, I explained to him that I had planned on doing further workup including enterography to define this small bowel segment He says he wants to do this an outpatient as he has been wanting to go home since yesterday He says that he understands the risk of obstruction or recurrence of his symp toms He says that he will see me in the office He was also advised on benefits of alcohol cessation (2) Abdominal pain: Status: Acute (3) ETOH abuse: Status: Acute Time Spent With Patient Time: Total time managing care of this patient today ____ minutes. Quality Stroke Does the patient have a stroke diagnosis?: No VTE Prior VTE?: No VTE Risk Level:: Medical - low VTE Device Contraindication: Treatment Not Indicated VTE Drug Contraindication: Treatment Not Indicated
--- NOTE | 2022-11-08 10:50 | MHC.CM.PN ---
PAtient is discharged to home self care. He has arranged for transport home.
--- NOTE | 2022-11-08 14:39 | P.DS_ITS ---
DS: Providers Provider Date of Service: 11/08/22 Date of admission: 11/06/22 22:36 Date of discharge: 11/08/22 Primary care physician: None Physician Attending physician on admission: Sarwat Escalera Consults: 11/06/22 22:38 Consult to Hospitalist Routine Comment: Consulting Provider: Hospitalist Reason For Exam: daily ETOH use Attending physician on discharge: Sarwat Escalera DS: Diagnosis Discharge Diagnosis (1) Intussusception: Status: Acute (2) Abdominal pain: Status: Acute (3) ETOH abuse: Status: Acute DS: Summary Hospital Course Hospital Course: BRIEF HPI: Yinka Bradley is a 32 year old male who came to the ED earlier for abdominal pain. He described this is mostly on the right side of the abdomen. He says this started around 130 in the afternoon. He described one episode of vomitting although he says that he this to try to be more comfortable and he says he has not been nauseous and has not vomited since he has been in the ER. The pain was described as severe so he went to the ED. By the time I saw him, he says his pain was almost completely resolved. He admits to heavy alcohol intake everyday. 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 His CT scan report shows possible intussuception and suggestion of filling defect in the distal CBD along with dilated CBD. His bilirubin is mildly elevated. HOSPITAL COURSE: The patient was admitted to the surgical service for work up of the dilated CBD and possible intussussception. He did not seem to be clinically obstructed and his symptoms resolved. In view of his dilated CBD with question of filling defect, MRCP was obtained. MRCP showed no CBD obstruction. His bilirubin remained unchanged. It did redemonstate the intussussception on the left without obvious mass. The patient wanted to be discharged as he was feeling improved. Extensive discussion regarding further work up including enterography to define this small bowel segment. He wanted to have this on an outpatient basis. He understood the risk of obstruction or recurrence of his symptoms and will follow up in the office. The patient was discharged to home on 11/08/22 in stable condition. Status at Discharge Functional status at discharge: independent ambulation Overall status at discharge: patient is back to baseline Time Spent with Patient Time attestation: Total time managing care of this patient today ____ minutes. Discharge coordination time: Less than 30 minutes Quality: Safe Use of Opioids Does Pt have an Active Cancer Diagnosis on the Problem List?: No Quality: Stroke Does the patient have a stroke diagnosis?: No Physical Exam Vital Signs: Vital Signs: Last Vital Signs Temp 97.7 F 11/08/22 07:17 Pulse 53 11/08/22 07:17 Resp 18 11/08/22 07:17 BP 109/68 11/08/22 07:17 Pulse Ox 97 11/08/22 07:17 O2 Del Method Room Air 11/08/22 07:17 BMI result Body Mass Index 22.4 Const: General: comfortable, no acute distress and alert Orientation/consciousness: patient oriented x3 GI: Inspection: Yes normal to inspection and No distended Palpation (GI): Soft to palpation and nontender Skin: General skin exam: no rashes or lesions noted Neuro: General: patient oriented x3 DS: Data Data Completed and Pending Labs on day of discharge: Preliminary micro results at discharge 11/06/22 19:29 Blood Culture - Preliminary Blood - Venous No growth after 24 hours. 11/06/22 19:29 Blood Culture - Preliminary Blood - Venous No growth after 24 hours. Discharge Plan Discharge Anticipated Discharge Date/Time: 11/08/22 08:31 Patient Disposition: Home, Self-Care Discharge Diagnosis: Abdominal pain, intussusception on CT scan Referrals: Sarwat Escalera MD [Physician] - 1 Week Physician,None [Primary Care Provider] - 1 Week Discharge Medications: No Action No Known Home Meds Discharge Orders: Discharge Order (Routine); Ordered 11/08/22 Ordered By: Sarwat Escalera Diet: Advance to usual diet Activity on Discharge: As tolerated Stand Alone Forms: Patient Portal Discharge page Activity Restrictions/Additional Instructions: Call the office for follow-up next week Return to the ER if you have recurrence of symptoms Care Plan Goals: Further workup for intussusception Health Concerns: Question of intussusception of the small bowel ETOH abuse Plan of Treatment: Follow-up in the office Assessment: Doing well, asymptomatic at this time Discharge Date/Time: 11/08/22 11:22
== END 2022-11-08 11:22 | disposition home or self-care (01) | DRG 390 ==
LOC: HO.ED 20:34 → HO.EDOVER 22:48 → HO.S3 11-07 00:45 → HO.EDOVER 11-07 01:17 → HO.S3 11-07 03:01
PROVIDERS: Physician Assistant; Physician Assistant Medical; Admitting Provider Surgery; Emergency Provider Internal Medicine; Visit Provider Surgery
DX: K56.1 Intussusception (principal); F17.210 Nicotine dependence, cigarettes, uncomplicated; Z71.6 Tobacco abuse counseling; F10.10 Alcohol abuse, uncomplicated; Z88.0 Allergy status to penicillin
CPT/HCPCS: 36415; 74177; 74181; 76705; 80048; 80053; 80076; 81003; 83605; 83690; 85025; 85027; 86704; 86706; 86709; 86803; 87040; 87340; 99285; J2270; J2405; Q9967

== ENCOUNTER → 2022-11-06 22:36 | Outpatient (BNV) | payer OTHER, SELFPAY | PROVIDERS: Admitting Provider Surgery; Emergency Provider Internal Medicine; Visit Provider Surgery | DX: R10.9 Unspecified abdominal pain (principal) | CPT/HCPCS: 99222; 99232; 99238; 99499 ==

== ENCOUNTER 2022-11-16 10:45 | Outpatient (AMB) | payer OTHER, SELFPAY ==
--- NOTE | 2022-11-16 10:59 | A.OFFVIS_ITS ---
Intake Vital Signs 11/16/22 11:04 Weight 132 lb BP 114/74 Blood Pressure Location Rt brachial Position Sitting Pulse 61 Intake Visit Reasons: Possible lap, small bowel resection of loop Intake Note: This patient presents for an assessment for possible lap, small bowel resection. Patient c/o; reports no complaints at this time. Nurses' Aide Required: No Accompanied by: Self / Same As Patient Allergies bee pollen [bee stings] Allergy (Verified 11/16/22 11:04) Anaphylaxis Penicillins Allergy (Verified 11/16/22 11:04) Rash Medication List - Last Reconciled 11/16/22 by Sarwat Escalera MD No Known Home Meds HPI Possible lap, small bowel resection of loop HPI Details 32-year-old male here for follow-up for intussusception. I had admitted him to the hospital last 11/05/2022 for right upper quadrant pain. However, CT scan had showed intussusception on the left side. He did not appear to be obstructed and his pain had resolved as soon as he got to the ER He said he has been doing well since then. He denies any abdominal pain. He has good oral intake. He has good bowel movements He has history of small-bowel resection in 2019 in [facility] for what he described as a benign tumor. [facility] Medical History Abdominal pain ETOH abuse Surgical History History of resection of small bowel Social History Household Members: None Housing: Apartment Do you presently have visiting nurse or other home services: No Alcohol intake: current Alcohol intake frequency: 3 or more drinks per day Alcohol type: beer Patient Tobacco Use Status: Current someday Tobacco user Tobacco use type: Cigarette e-Cigarette/Vaping Use: Never Used Substance Use Type: Marijuana service: No Review of Systems Const Denies chills and Denies fever(s) Card Denies chest pain, Denies dyspnea and Denies dyspnea on exertion Resp Denies cough, Denies dyspnea and Denies dyspnea on exertion GI Denies hematochezia and Denies change in bowel habits Denies hematuria and Denies difficulty urinating Musc Denies back pain and Denies limited range of motion Neuro Denies focal weakness and Denies convulsions Psych Denies depression and Denies mood swings Physical Exam Vital Signs: Last Vital Signs Pulse 61 11/16/22 11:04 BP 114/74 11/16/22 11:04 Const General: comfortable and no acute distress Orientation/consciousness: patient oriented x3 Neck Neck: Yes no lymphadenopathy Resp Auscultation: clear to auscultation bilaterally Cardio Rhythm: regular rhythm GI Palpation (GI): Soft to palpation, nontender and no guarding Neuro General: patient oriented x3 Assessment & Plan Assessment & Plan (1) Intussusception: Code(s): K56.1 - Intussusception Plan: He is asymptomatic and does not have any significant abdominal or GI complaints I am going to order for a CT enterography because of 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 He had already undergone resection for this. He does have a very benign exam. I will see him in the office after his CAT scan I last him to retrieve a copy of his operative report from [facility] as well so I can review this. He also has a history of alcohol abuse and so I had counseled him about this We are also assisting him in establishing a primary care physician as he does not see any physician at this time. (2) History of resection of small bowel: Code(s): Z90.49 - Acquired absence of other specified parts of digestive tract Orders: Orders CT enterography Today K56.1 - Intussusception, Z90.49 - Acquired absence of other specified parts of digestive tract Coding Level of Care Code Est Pt Level 3 (78262) Diagnoses Intussusception K56.1 History of resection of small bowel Z90.49
[2022-11-16 11:04] VITALS: BP 114/74; PULSE 61
== END 2022-11-16 11:17 | disposition home or self-care (01) ==
PROVIDERS: Visit Provider Surgery
DX: K56.1 Intussusception (principal); Z90.49 Acquired absence of other specified parts of digestive tract
CPT/HCPCS: 99213

== ENCOUNTER → 2022-11-16 10:45 | Outpatient (BNVA) | payer OTHER, SELFPAY | PROVIDERS: Visit Provider Surgery ==

== ENCOUNTER 2022-12-15 14:27 | Outpatient (REF) | payer OTHER, SELFPAY ==
--- NOTE | ~2022-12-15 | CT_ITS ---
EXAMINATION: CT ENTEROGRAPHY ABDOMEN AND PELVIS WITH CONTRAST CLINICAL INFORMATION: Intussusception COMPARISON: Ultrasound, CT and MR of the abdomen October 2022 TECHNIQUE: Study performed with oral VoLumen (1350 mL) and 480 mL of water to distend the abdomen. The patient was injected with 85 mL Omnipaque 350 intravenous contrast which was administered without adverse effect. Coronal and sagittal reformatted images were obtained at the technologist's workstation. This CT examination was performed using dose optimization techniques as appropriate, variously including the following: *Automated exposure control *Adjustment of mA and/or kV according to patient size (this includes techniques or standardized protocols for targeted exams where dose is matched to indication/reason for exam; i.e. extremities or head) *Use of iterative reconstruction technique DLP: 224 mGy-cm FINDINGS: GASTROINTESTINAL FINDINGS: Stomach: Well-distended and normal in appearance. Small intestine: There is dilatation of the small bowel and small bowel anastomosis left upper quadrant. Small bowel measures up to 4 cm. Previously identified intussusception is no longer seen. There is question of mild wall thickening of the duodenum or proximal jejunum just proximal to the surgical staple line. No small bowel mass. Large intestine: Well-distended and normal in appearance. No perirectal changes demonstrated. The appendix is normal. Additional findings: No abnormal enhancement of the vasa recta or significant mesenteric or retroperitoneal lymphadenopathy is seen. No abdominal abscess or fistulous tract demonstrated. ABDOMINAL AND PELVIC CT FINDINGS: Liver, gallbladder, biliary tract: Normal Pancreas: Normal Spleen: Normal Adrenal glands and kidneys: Normal Ureters and bladder: Normal Lymphovascular structures: Normal Bones: Normal Lung bases: Normal CT/CT enterography IMPRESSION: Dilated small bowel in the left upper quadrant at the surgical anastomosis. No small bowel mass or intussusception. There may be mild wall thickening of the distal duodenum/proximal jejunum just proximal to the small bowel anastomosis.
[2022-12-15] MEDS: iohexoL 350 MG/ML 100 ML INFUS..BTL 85 ML IV (16:19)
[2022-12-15] MEDS: Sorbitol/Mannit/Xanth Imaging 500 ML LIQUID 1500 ML PO (16:19)
== END 2022-12-15 14:28 | disposition home or self-care (01) ==
LOC: HO.CT 14:27
PROVIDERS: Visit Provider Surgery
DX: K56.1 Intussusception (principal); Z90.49 Acquired absence of other specified parts of digestive tract
CPT/HCPCS: 74177; Q9967

== ENCOUNTER 2022-12-26 13:09 | Outpatient (AMB) | payer OTHER, SELFPAY ==
--- NOTE | 2022-12-26 13:10 | MHC.OFFVIS ---
Intake Vital Signs 12/26/22 13:14 Weight 132 lb BP 131/82 Blood Pressure Location Rt brachial Position Sitting Pulse 70 Intake Visit Reasons: Follow up CT enterography Intake Note: This patient presents for a follow-up assessment for CT Enterography results. Patient c/o; reports no changes. Canine Service Teacher Required: No Accompanied by: Self / Same As Patient Allergies bee pollen [bee stings] Allergy (Verified 12/26/22 13:16) Anaphylaxis Penicillins Allergy (Verified 12/26/22 13:16) Rash Medication List - Last Reconciled 12/26/22 by Sarwat Escalera MD No Known Home Meds HPI Follow up CT enterography HPI Details I had sent him for a CT enterography because of a previous finding of small-bowel intussusception. I had admitted him to the hospital in October 2022 because of this He otherwise had no further episodes. He says he feels well overall. He denies any problems with nausea or vomiting or abdominal pain. Has good bowel movements. PFSH Medical History Abdominal pain ETOH abuse Surgical History History of resection of small bowel Social History Household Members: None Housing: Apartment Do you presently have visiting nurse or other home services: No Alcohol intake: current Alcohol intake frequency: 3 or more drinks per day Alcohol type: beer Patient Tobacco Use Status: Current someday Tobacco user Tobacco use type: Cigarette e-Cigarette/Vaping Use: Never Used Substance Use Type: Marijuana service: No Review of Systems Const Denies chills and Denies fever(s) Card Denies chest pain, Denies dyspnea and Denies dyspnea on exertion Resp Denies cough, Denies dyspnea and Denies dyspnea on exertion GI Denies hematochezia and Denies change in bowel habits Denies hematuria and Denies difficulty urinating Musc Denies back pain and Denies limited range of motion Neuro Denies focal weakness and Denies convulsions Psych Denies depression and Denies mood swings Physical Exam Vital Signs: Last Vital Signs Pulse 70 12/26/22 13:14 BP 131/82 12/26/22 13:14 Const General: comfortable and no acute distress Resp Effort & Inspection: normal respiratory effort Cardio Rate: regular rate GI Palpation (GI): Soft to palpation, not firm, nontender and no guarding Assessment & Plan Assessment & Plan (1) Intussusception: Code(s): K56.1 - Intussusception Plan: He had been previously admitted for intussusception. I had ordered for his CT enterography. 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 The anastomosis is patent. There is dilatation proximal to this but no lesions or signs of obstruction I explained to him the above findings. It appears that currently there is no surgical intervention necessary for him. I did explain to him that if he has symptoms, he may follow up with me again in the office. Coding Level of Care Code Est Pt Level 3 (60203) Diagnoses Intussusception K56.1
[2022-12-26 13:14] VITALS: BP 131/82; PULSE 70
== END 2022-12-26 13:26 | disposition home or self-care (01) ==
PROVIDERS: Visit Provider Surgery
DX: K56.1 Intussusception (principal)
CPT/HCPCS: 99213

== ENCOUNTER → 2022-12-26 13:09 | Outpatient (BNVA) | payer OTHER, SELFPAY | PROVIDERS: Visit Provider Surgery ==